=== PATIENT | female | born 1990 | race Caucasian/White ===

== ENCOUNTER 2020-02-01 22:48 | Inpatient (IN) | payer OTHER ==
[2020-02-01] MEDS ORDERED: LIDOCAINE 0.5% (PF) 5 MG/ML (50 ML SDV) SQ PRN (23:13)
[2020-02-01] MEDS ORDERED: OXYTOCIN 10 UNIT/ML 1 ML VIAL IM PRN (23:13)
[2020-02-01] MEDS ORDERED: METHYLERGONOVINE 0.2 MG/ML 1 ML AMP IM PRN (23:13)
[2020-02-01] MEDS ORDERED: CARBOPROST TROMETHAMINE 250 MCG/ML 1 ML AMP IM PRN (23:13)
[2020-02-01] MEDS ORDERED: TERBUTALINE 1 MG/ML VIAL SQ PRN (23:13)
[2020-02-01] MEDS ORDERED: LACTATED RINGERS 1,000 ML IV SCH (23:15)
--- NOTE | 2020-02-01 23:57 | P.HPOB ---
History of Present Illness H&P Date: 02/01/20 Chief Complaint: Contractions This patient is a pleasant 29-year-old 4 para 2 female estimated date of confinement 02/09/2020 estimated gestational age 38-6/7 weeks who presents to labor and delivery with complaints of contractions. Patient was in the office earlier today was 3 cm dilated is now 4-5 cm dilated thought to be in active labor. care appears to be uncomplicated a low she did have some mild thrombocytopenia however repeat platelet count was above 100,000. Patient's care otherwise appears uncomplicated. Review of Systems Genitourinary: Reports Menstruation: Reports amenorrhea Past Medical History Past Medical History: No Reported History Additional Past Medical History / Comment(s): Patient's had 2 previous vaginal deliveries, both baby girls History of Any Multi-Drug Resistant Organisms: None Reported Past Surgical History: No Surgical Hx Reported Smoking Status: Never smoker Medications and Allergies Home Medications Medication Instructions Recorded Confirmed Type Pnv No.95/Ferrous Fum/Folic AC 1 tab PO DAILY 02/01/20 02/01/20 History [ Multivitamin Tablet] Allergies Allergy/AdvReac Type Severity Reaction Status Date / Time No Known Allergies Allergy Verified 02/01/20 22:51 Exam Intake and Output 02/01/20 02/01/20 02/02/20 14:59 22:59 06:59 Other: Weight 79.379 kg - OBG Physical Exam Abdomen: bowel sounds normal, no diffuse tenderness, no bruit present, no guarding noted, no hepatomegaly, no splenomegaly, no mass Vulva: both: normal Vagina: normal moisture, no discharge Cervix: no lesion (Cervix is 4-5 cm dilated 0 station.), no discharge Uterus: enlarged Results blood work shows she is O positive, rubella nonimmune, RPR nonreactive, hepatitis B negative, group B strep was negative, most recent growth ultrasound showed 6 pounds. Assessment and Plan Assessment: This is a pleasant 29-year-old 4 para 2 female 38-6/7 weeks gestation in active labor. Patient does not request epidural for pain medicines at this time. Plan is anticipate vaginal delivery. We'll also check her platelets due to history of mild thrombocytopenia. (1) 39 weeks gestation of Current Visit: Yes Status: Acute Code(s): Z3A.39 - 39 WEEKS GESTATION OF SNOMED Code(s): 17093714 (2) Normal labor Current Visit: Yes Status: Acute Code(s): O80 - ENCOUNTER FOR FULL-TERM UNCOMPLICATED DELIVERY; Z37.9 - OUTCOME OF DELIVERY, UNSPECIFIED SNOMED Code(s): 18083131
[2020-02-02 00:31] LABS: Basophils % (A) 0 %; Eosinophils % (A) 0 %; HGB 11.8 gm/dL (11.4-16.0); Lymphocytes # (A) 1.8 k/uL (1.0-4.8); Lymphocytes % (A) 14 %; MCH 28.5 pg (25.0-35.0); MCHC 33.6 g/dL (31.0-37.0); MCV 84.8 fL (80.0-100.0); Mean Platelet Volume 8.8; Monocytes # (A) 0.6 k/uL (0-1.0); Monocytes % (A) 4 %; Neutrophils # (A) 10.1 k/uL (1.3-7.7); Neutrophils % (A) 80 %; Platelet Count 142 k/uL (150-450); Poikilocytosis Slight; RBC 4.13 m/uL (3.80-5.40); RDW 15.3 % (11.5-15.5); WBC 12.7 k/uL (3.8-10.6)
--- NOTE | 2020-02-02 01:41 | P.PROBDLV ---
Vaginal Delivery Note - . Vaginal Delivery Note: Normal spontaneous vaginal delivery viable male infant Apgars 9 and 9 delivery time is 0117 hours. Please see dictated H&P for intimate details of this patient's admission. Brief summary this is a 29-year-old 4 para 2 female 38-6/7 weeks gestation who is admitted to labor and delivery with complaints of contractions found to be in early labor. Patient's 4-5 cm dilated has artificial rupture membranes for clear fluid. Patient does not want anything for pain control she then progresses and gets to complete. Unfortunately at this time patient does get quite out of control and refuses to push. Patient's head is at +2 station and she does have some bradycardia into the 80s but despite multiple efforts at getting her to push she refuses. Myself and the nurses tried multiple times to kids activities coach her to push and informed her of the bradycardia however she still was uncooperative. Fortunately, while screaming and out of control she was able to deliver the infant's head. At this time, she moved herself back in the bed and arched up however I was able to deliver the rest of this infant atraumatically without her cooperation. This is a vigorous viable male Apgars 9 and 9 delivery time is 0117 hours. Infant has spontaneous respiration and good cry. Due to previous history of jaundice the umbilical cord was cut and clamped immediately and the infant was laid on the mother's abdomen. Placenta spontaneously delivered intact. Inspection of the perineum shows a first-degree laceration. This is infiltrated with 1% lidocaine and repaired with 3-0 Vicryl in the usual fashion. Reapproximation is noted. Estimated blood loss is 150 mL . and mother are stable in delivery room.
[2020-02-02] MEDS ORDERED: HYDROCORTISONE 2.5% RECTAL CREAM 30 GM TUBE RECTAL PRN (01:44)
[2020-02-02] MEDS ORDERED: diphenhydrAMINE 25 MG CAP PO PRN (01:44)
[2020-02-02] MEDS ORDERED: SIMETHICONE 80 MG CHEWABLE PO PRN (01:44)
[2020-02-02] MEDS ORDERED: ZOLPIDEM 5 MG TAB PO PRN (01:44)
[2020-02-02] MEDS ORDERED: OXYTOCIN 20 UNITS/1000 ML NS 1,000 ML IV SCH (01:44)
[2020-02-02] MEDS ORDERED: diphenhydrAMINE 50 MG/ML 1 ML VIAL IVP PRN (01:44)
[2020-02-02] MEDS ORDERED: MEASLES-MUMPS-RUBELLA VACC/PF 12,500 UNIT/0.5 ML VIAL SQ ONE (01:44)
[2020-02-02] MEDS ORDERED: bisacodyL 10 MG SUPP RECTAL PRN (01:44)
[2020-02-02] MEDS ORDERED: BENZOCAINE/MENTHOL SPRAY 1 GM/SPRAY AEROSOL TOPICAL PRN (01:44)
[2020-02-02] MEDS ORDERED: LANOLIN CREAM 5 GM TUBE TOPICAL PRN (01:44)
[2020-02-02] MEDS: IBUPROFEN 600 MG TAB PO PRN ×3 (02:13→18:02)
[2020-02-02] MEDS: SENNOSIDES-DOCUSATE SODIUM 1 EACH TAB PO SCH ×2 (07:52→19:51)
[2020-02-02] MEDS: ACETAMINOPHEN TAB 325 MG TAB PO PRN (19:52)
[2020-02-03] MEDS: IBUPROFEN 600 MG TAB PO PRN ×2 (01:59→14:07)
[2020-02-03 06:31] LABS: Basophils % (A) 0 %; Eosinophils # (A) 0.1 k/uL (0-0.7); Eosinophils % (A) 1 %; HGB 10.1 gm/dL (11.4-16.0); Lymphocytes % (A) 25 %; MCHC 33.6 g/dL (31.0-37.0); MCV 86.4 fL (80.0-100.0); Monocytes # (A) 0.3 k/uL (0-1.0); Monocytes % (A) 4 %; Neutrophils # (A) 5.4 k/uL (1.3-7.7); Neutrophils % (A) 68 %; Platelet Count 114 k/uL (150-450); Poikilocytosis Slight; RBC 3.47 m/uL (3.80-5.40); RDW 15.5 % (11.5-15.5); WBC 7.9 k/uL (3.8-10.6)
[2020-02-03] MEDS: ACETAMINOPHEN TAB 325 MG TAB PO PRN (08:34)
[2020-02-03] MEDS: SENNOSIDES-DOCUSATE SODIUM 1 EACH TAB PO SCH (08:34)
[2020-02-03 08:44] VITALS: RESP 16
--- NOTE | 2020-02-03 11:01 | P.DS ---
Providers Date of admission: 02/01/20 23:08 Expected date of discharge: 02/03/20 Attending physician: Jennifer Singh Primary care physician: Stated None Hospital Course: A 29-year-old female 4 para 2 at 39 weeks who presented in active labor. She delivered vaginally a viable male infant on 02/02/2020 with scores of 9 at 1 minute and 9 at 5 minutes and infant weight of 7 lbs. 8 oz. Her course has been essentially uncomplicated. Baby is on a bili blanket. She is bottle feeding. Lochia is minimal. Pain is fairly well controlled. Vital signs are stable. Abdomen is soft with fundus firm and nontender. Extremities show negative Homans. Impression is status post vaginal delivery day #1. Plan is to discharge home later today as long as baby's bili remains okay. She is advised to follow up with Dr. Singh in 6 weeks for a check. She will be given a prescription for ibuprofen. She is advised to call the office if she has any further questions or concerns prior to her appointment. Routine instructions are given. Procedures: Spontaneous vaginal delivery of a viable male on 02/02/2020 Patient Condition at Discharge: Stable Plan - Discharge Summary New Discharge Prescriptions: New Ibuprofen [Motrin] 600 mg PO Q6HR PRN #60 tab PRN Reason: Mild Pain Or Fever >= 100.5 Continue Pnv No.95/Ferrous Fum/Folic AC [ Multivitamin Tablet] 1 tab PO DAILY Discharge Medication List Pnv No.95/Ferrous Fum/Folic AC [ Multivitamin Tablet] 1 tab PO DAILY 02/01/20 [History] Ibuprofen [Motrin] 600 mg PO Q6HR PRN #60 tab 02/03/20 [Rx] Follow up Appointment(s)/Referral(s): Jennifer Singh DO [Doctor of Osteopathic Medicine] - 6 Weeks Activity/Diet/Wound Care/Special Instructions: Instructions 1. Do not begin any exercise program for 3 weeks. 2. Do not resume sexual relations for 3 weeks or longer if uncomfortable. 3. You may take tub baths or showers at any time. 4. You may use tampons if desired after 3 weeks. 5. Keep the area of episiotomy (stitches) clean and dry. 6. If you are not nursing, wear a good fitting, supportive bra during the day and limit fluid intake for at least 1 week to prevent breast engorgement. 7. Call the office, [phone], within the next week to make appointment for your 6 week checkup if it has not already been made. 8. Report any of the following occurrences to the doctor promptly: a. Heavy, excessive bleeding b. Chills, fever c. Burning or frequency of urination d. Pain or redness and breasts if nursing e. Increasing pain or swelling in episiotomy (stitches). In addition to the above instructions, the following additional should be followed: 1. No heavy lifting or straining (exercising) until after 6 week checkup. 2. Keep abdominal incision clean and dry: You may wear a dressing if more comfortable. 3. Make office appointment for 10 days after going home or as instructed by her doctor. Discharge Disposition: HOME SELF-CARE
[2020-02-03 16:25] VITALS: BP 98/57; PULSE 78; TEMP 98.1
--- NOTE | 2020-02-05 09:09 | P.MSEPDOC ---
Presenting Problems - Arrival Data Date of Arrival on Unit: 02/01/20 Time of Arrival on Unit: 23:12 Mode of Transport: Wheelchair - Complaint OB-Reason for Admission/Chief Complaint: Possible Onset of Labor Comment: contractions began at 1700 every 3 minutes Medical History - Information : 4 Para: 2 Term: 2 : 0 Abortions: Spontaneous or Elective: 1 Number of Living Children: 2 - Gestational Age Gestational Age by RUBY (wks/days): 39 Weeks and 0 Days Review of Systems - Review of Systems Constitutional: No problems Breast: No problems ENT: No problems Cardiovascular: No problems Respiratory: No problems Gastrointestinal: No problems Genitourinary: No problems Musculoskeletal: No problems Neurological: No problems Skin: No problems Vital Signs - Temperature Temperature: 98.1 F Temperature Source: Oral - Pulse Right Pulse Oximetery Pulse Rate: 78 Pulse Assessment Method: Automatic Cuff - Respirations Respiratory Rate: 16 Oxygen Delivery Method: Room Air - Blood Pressure Right Arm Blood Pressure: 98/57 Blood Pressure Mean: 70 Blood Pressure Source: Automatic Cuff Medical Screen Scoring (Pre) - Cervical Exam Dilation: 4-7 cm = 2 Effacement: More than 50% = 2 Membranes: Intact - Uterine Contractions Frequency: > or = 36 weeks =2 Duration: > 40 seconds = 2 Intensity: Contraction palpated strong = 1 - Maternal Vital Signs Maternal Temperature: N/A Maternal Blood Pressure: N/A Signs of Preeclampsia: N/A Maternal Respirations: N/A - Maternal Trauma Maternal Trauma: N/A - Assessment - Baby A Baseline FHR: 145 Heart Rate - NICHD Category: Category I (Normal) = 0 NST: Reactive Position: N/A Station: N/A - Total Score - Baby A Total Score - Baby A: 9 - Total Score - Baby B Total Score - Baby B: 9 - Total Score - Baby C Total Score - Baby C: 9 - Level of Risk - Baby A Level of Risk - Baby A: Medium (6-9) - Level of Risk - Baby B Level of Risk - Baby B: Medium (6-9) - Level of Risk - Baby C Level of Risk - Baby C: Medium (6-9) Physician Notification (Pre) - Physician Notified Physician Notified Date: 02/01/20 Physician Notified Time: 23:12 - Notification Comment Comment: pt admitted for labor Disposition - Disposition OB Disposition: Admit Discharge Date: 02/03/20 Discharge Time: 19:50 I agree with the RN Medical Screening Exam: Yes Risk & Benefit of care provided described in d/c instruction: Yes Diagnosis: ENCOUNTER FOR FULL-TERM UNCOMPLICATED DELIVERY
== END 2020-02-03 19:50 | disposition home or self-care (01) | DRG 807 ==
LOC: FBPOP 22:48 → 4FBP 23:08
PROVIDERS: ADMIT Obstetrics & Gynecology; ATTEND Obstetrics & Gynecology
PROC: 10E0XZZ Delivery of Products of Conception, External Approach (ICD-10-PCS; principal; 2020-02-02)
PROC: 0HQ9XZZ Repair Perineum Skin, External Approach (ICD-10-PCS; principal; 2020-02-02)
DX: O99.12 Other diseases of the blood and blood-forming organs and certain disorders involving the immune mechanism complicating childbirth (principal); Z37.0 Single live birth; O70.0 First degree perineal laceration during delivery; D69.6 Thrombocytopenia, unspecified; O76 Abnormality in fetal heart rate and rhythm complicating labor and delivery; Z3A.38 38 weeks gestation of pregnancy
CPT/HCPCS: 59025; 85025; 86850; 86900; 86901; 90707; 99213